=== PATIENT | female | born 1945 | race Two or more races ===

== ENCOUNTER 2020-04-13 10:58 | Outpatient (CLI) | payer OTHER | END 2020-04-13 11:04 | disposition home or self-care (01) | LOC: RX STUDY 10:58 | PROVIDERS: ATTEND Internal Medicine | DX: R13.19 Other dysphagia (principal); K21.9 Gastro-esophageal reflux disease without esophagitis ==

== ENCOUNTER 2022-03-20 08:47 | Outpatient (CLI) | payer OTHER | END 2022-03-20 08:52 | disposition home or self-care (01) | LOC: RX STUDY 08:47 | PROVIDERS: ATTEND Internal Medicine Cardiovascular Disease | DX: R13.10 Dysphagia, unspecified (principal) ==